=== PATIENT | male | born 1970 | race Caucasian/White ===

== ENCOUNTER 2021-05-17 17:06 | Emergency (ER) | payer BC, OTHER ==
[2021-05-17 17:17] VITALS: BP 167/98; PULSE 78; TEMP 99.2; BMI 28.2
== END 2021-05-17 18:42 | disposition home or self-care (01) ==
LOC: FER 17:06
DX: S92.354A Nondisplaced fracture of fifth metatarsal bone, right foot, initial encounter for closed fracture (principal)
CPT/HCPCS: 73610-TC-RT-FY; 73630-TC-RT-FY; 99283-25